=== PATIENT | female | born 1955 | race Caucasian/White ===

== ENCOUNTER → 2017-09-21 | Outpatient (CLI) | payer OTHER | END | disposition home or self-care (01) | LOC: PCVCIMAG 08:54 | DX: I65.23 Occlusion and stenosis of bilateral carotid arteries (principal) | CPT/HCPCS: 93880 ==

== ENCOUNTER → 2017-09-27 | Outpatient (CLI) | payer OTHER | END | disposition home or self-care (01) | LOC: PCVCIMAG 14:25 | DX: E78.5 Hyperlipidemia, unspecified (principal); G47.33 Obstructive sleep apnea (adult) (pediatric); R53.83 Other fatigue; I10 Essential (primary) hypertension; I25.10 Atherosclerotic heart disease of native coronary artery without angina pectoris; Z87.891 Personal history of nicotine dependence | CPT/HCPCS: 93325; 93351 ==

== ENCOUNTER → 2019-02-06 | Outpatient (CLI) | payer OTHER ==
--- NOTE | 2019-02-06 08:33 | PCVCIMAG ---
APPROVED REPORT Laterality: Bilateral Patient Location: Out-Patient Indications Stenosis Doppler Spectral Velocity Analysis PSV / EDVPSV / EDV ECA (R) 123 / 19 cm/sECA (L) 85 / 14 cm/s dICA (R) 85 / 28 cm/sdICA (L) 89 / 30 cm/s Nikhil (R) 69 / 18 cm/smICA (L) 112 / 29 cm/s pICA (R) 68 / 18 cm/spICA (L) 159 / 58 cm/s Bulb (R) 53 / 15 cm/sBulb (L) 67 / 18 cm/s dCCA (R) 75 / 17 cm/sdCCA (L) 72 / 20 cm/s mCCA (R) 90 / 16 cm/smCCA (L) 87 / 16 cm/s Vert (R) 47 / 14 cm/sVert (L) 49 / 13 cm/s ICA/CCA 1.13ICA/CCA 2.21 Findings The right carotid bulb has moderate calcified plaque. The right proximal internal carotid artery shows <40% stenosis. The right common carotid artery shows no significant stenosis. The right external carotid artery shows no significant stenosis. The left carotid bulb has moderately severe calcified plaque. The left proximal internal carotid artery shows 60-70% stenosis. The left common carotid artery shows no significant stenosis. The left external carotid artery shows no significant stenosis. Conclusion 1. Right internal carotid artery stenosis (<40%). 2. Left internal carotid artery stenosis (60-70%) 3. Antegrade vertabral flow
--- NOTE | 2019-02-06 15:12 | PCVCIMAG ---
APPROVED REPORT Study performed: 02/06/2019 08:21:27 Exam: Stress Echocardiogram Indication: CAD s/p PCI, htn, hlp Patient Location: Echo lab Stress Nurse: Sia Zimmerman RN Status: routine Ht: 5 ft 0 in HR: 55 bpm BP: 132/82 mmHg Rhythm: Bradycardia Procedure The patient underwent an Exercise Stress Test using the Michael Protocol. Blood pressure, heart rate, and EKG were monitored. An Echocardiogram was performed by computer systems technician in four stages in quad fashion. At peak stress, four selected images were obtained and placed side by side with resting images for comparison. Stress Test Details Stress Test: Exercise stress testing was performed using a Michael protocol. HR Resting HR: 55 bpmMax Heart Rate (APMHR): 158 bpm Max HR Achieved: 133 bpmTarget HR (85% APMHR): 134 bpm % of APMHR: 84 Recovery HR: 64 bpm HR response to stress: Normal HR response to stress BP Resting BP: 132/82 mmHg Max BP: 176/80 mmHg Recovery BP: 142/80 mmHg BP response to stress: Normal blood pressure response to stress. ECG Resting ECG: Sinus Bradycardia Stress ECG: Sinus Rhythm ST Change: Nonspecific ST abnormalities Arrhythmia: rare PAC Recovery ECG: Sinus Rhythm Recovery ST Change: Nonspecific ST abnormalities Recovery Arrhythmia: None Clinical Reason for Termination: Maximal effort Stress Symptoms: Dyspnea Exercise duration: 9 min sec Highest Stage Achieved: Stage 4: 4.2 mph at 16% grade. Exercise capacity: 10.1 METs Overall Exercise Capacity for Age: Normal Scale: Sedentary Angina Score: None Pre-Stress Echo The resting Echocardiogram showed normal left ventricular contractility with an estimated Ejection Fraction of about >55%. The resting echocardiogram demonstrated normal wall motion in all wall segments. Post-Stress Echo The stress Echocardiogram showed normal left ventricular contractility with an estimated Ejection Fraction of about 65%. Compared to rest, there were no stress-induced wall motion abnormalities. Clinical No clinical or ECG evidence for ischemia. Conclusion Clinical Response: Non-ischemic Exercise Capacity: Average Stress ECG Response: Non-ischemic Stress Echo Images: Non-ischemic The left ventricle is normal in size and wall thickness in both the rest and stress images. Trace tricuspid regurgitation with PAP of 32 mmHg. Mild mitral regurgitation. Normal aortic valve without stenosis. Trace pulmonic regurgitation. Other Information Study Quality: Adequate <Conclusion> The left ventricle is normal in size and wall thickness in both the rest and stress images. Trace tricuspid regurgitation with PAP of 32 mmHg. Mild mitral regurgitation. Normal aortic valve without stenosis. Trace pulmonic regurgitation.
== END | disposition home or self-care (01) ==
LOC: PCVCIMAG 08:08
PROVIDERS: ATTEND Internal Medicine Cardiovascular Disease
DX: I65.23 Occlusion and stenosis of bilateral carotid arteries (principal); I34.0 Nonrheumatic mitral (valve) insufficiency; I25.10 Atherosclerotic heart disease of native coronary artery without angina pectoris; I10 Essential (primary) hypertension; E78.5 Hyperlipidemia, unspecified; Z95.5 Presence of coronary angioplasty implant and graft
CPT/HCPCS: 93325; 93351; 93880